=== PATIENT | female | born 1955 | race Caucasian/White ===

== ENCOUNTER 2021-02-08 11:30 | Observation (INO) ==
[2021-02-08 13:23] LABS: Basophils # 0.1 K/mcL (0.0-0.2); Basophils % 0.7 %; Eosinophils # 0.2 K/mcL (0.0-0.6); Eosinophils % 2.7 %; Hemoglobin 11.6 g/dL (11.5-15.4); Immature Granulocytes % 0.3 % (0-4); Lymphocytes # 1.6 K/mcL (0.6-4.6); Lymphocytes % 22.2 %; Mean Corpuscular HGB Conc 32.2 g/dL (31.6-35.5); Mean Corpuscular Hemoglobin 28.5 pg (28.0-33.3); Mean Corpuscular Volume 88.5 fL (83.0-100.0); Mean Platelet Volume 9.4 fL (9.4-12.4); Monocytes # 0.5 K/mcL (0.0-1.3); Monocytes % 7.5 %; Neutrophils # 4.7 K/mcL (1.6-8.9); Platelet Count 290 K/mcL (140-400); Red Blood Count 4.07 M/mcL (3.82-4.97); Red Cell Distribution Width 12.7 % (11.5-14.5); Segmented Neutrophils % 66.6 %
[2021-02-08 13:44] LABS: Bilirubin,Urine Negative (Negative); Blood,Urine Negative (Negative); Clarity,Urine Clear (Clear); Color,Urine Light-Yellow (Yellow); Glucose,Urine (UA) Normal (Normal); Ketones,Urine Negative (Negative); Leukocyte Esterase,Urine Negative (Negative); Nitrite,Urine Negative (Negative); PH,Urine 5.5 pH Units (5.0-8.0); Protein,Urine Negative (Neg-Trace); Specific Gravity,Urine 1.013 (1.010-1.025); Urobilinogen,Urine Normal (Normal)
[2021-02-08 13:48] LABS: Alanine Aminotransferase 11 Units/L (7-52); Albumin 4.1 g/dL (3.5-5.7); Albumin/Globulin Ratio 1.2 (1.1-2.2); Alkaline Phosphatase 53 Units/L (34-104); Aspartate Amino Transferase 12 Units/L (13-39); BUN/Creatinine Ratio 24 (6-26); Bilirubin,Direct 0.1 mg/dL (0.0-0.2); Bilirubin,Indirect 0.2 mg/dL (0.0-1.0); Bilirubin,Total 0.3 mg/dL (0.3-1.0); Blood Urea Nitrogen 66 mg/dL (8-23); Calcium 10.2 mg/dL (8.6-10.3); Carbon Dioxide 21 mEq/L (23-29); Chloride 107 mEq/L (98-107); Globulin 3.5 g/dL (2.4-3.5); Glucose 103 mg/dL (70-105); Osmolality,Calculated 301 (280-300); Sodium 136 mEq/L (136-145); Total Protein 7.6 g/dL (6.4-8.9); eGFR For African Americans 21 (> 60); eGFR For Non-African Americans 18 (> 60)
[2021-02-08] MEDS ORDERED: 0.9 % Sodium Chloride 500 ML IVC ONE (14:05)
[2021-02-08 15:05] LABS: Troponin I < 0.03 ng/mL (< 0.04)
[2021-02-08] MEDS ORDERED: Naloxone 0.4 MG/ML INJ IVP PRN (15:07)
[2021-02-08] MEDS ORDERED: Perflutren Lipid Microsphere 1.3 ML in 0.9 % Sodium Chloride 8.7 ML IVP PRN (16:43)
[2021-02-08 17:03] LABS: Thyroid Stimulating Hormone 2.863 mcIU/mL (0.340-5.600)
[2021-02-08] MEDS: hydrALAZINE 25 MG TABLET PO SCH (19:38)
[2021-02-09 01:06] LABS: Basophils % 0.6 %; Eosinophils # 0.2 K/mcL (0.0-0.6); Eosinophils % 3.1 %; Hematocrit 30.9 % (35.3-44.9); Hemoglobin 10.6 g/dL (11.5-15.4); Immature Granulocytes % 0.3 % (0-4); Lymphocytes # 1.7 K/mcL (0.6-4.6); Lymphocytes % 26.9 %; Mean Corpuscular HGB Conc 34.3 g/dL (31.6-35.5); Mean Corpuscular Hemoglobin 29.5 pg (28.0-33.3); Mean Corpuscular Volume 86.1 fL (83.0-100.0); Monocytes # 0.6 K/mcL (0.0-1.3); Monocytes % 9.3 %; Neutrophils # 3.9 K/mcL (1.6-8.9); Platelet Count 250 K/mcL (140-400); Red Blood Count 3.59 M/mcL (3.82-4.97); Red Cell Distribution Width 12.7 % (11.5-14.5); Segmented Neutrophils % 59.8 %; White Blood Count 6.5 K/mcL (4.3-11.1)
[2021-02-09 01:26] LABS: Calcium 9.7 mg/dL (8.6-10.3)
[2021-02-09] MEDS: *HR* Heparin 5,000 UNIT/ML VIAL SQ SCH ×2 (04:57→16:02)
[2021-02-09] MEDS: hydrALAZINE 25 MG TABLET PO SCH ×2 (07:37→16:02)
[2021-02-09] MEDS ORDERED: Dextrose Gel 15 GM/37.5 ML TUBE PO PRN ×2 (08:39)
[2021-02-09] MEDS ORDERED: *HR* Dextrose 50 % in Water (Vial) 50 ML VIAL IVP PRN (08:39)
[2021-02-09] MEDS ORDERED: D5% in Water 1,000 ML IVC PRN (08:39)
[2021-02-09] MEDS ORDERED: amLODIPine 5 MG TABLET PO SCH (09:00)
[2021-02-09] MEDS ORDERED: Valsartan 160 MG TABLET PO SCH (09:00)
[2021-02-09] MEDS ORDERED: Cholecalciferol (D-3) 1,000 UNIT (25MCG) TABLET PO SCH (09:00)
[2021-02-09] MEDS: Insulin LISPRO 300 UNITS/3 ML VIAL SUBQ SCH ×2 (11:44→16:04)
[2021-02-09 13:41] LABS: Magnesium 2.4 mg/dL (1.6-2.6)
[2021-02-09 15:19] VITALS: BP 120/66; PULSE 59; TEMP 99; O2SAT 96
== END 2021-02-09 18:06 | disposition home or self-care (01) ==
LOC: EMEROOARM 11:30 → 3BNU 11:30 → SUATTDRO 16:29 → 3BNU 17:08
PROVIDERS: ADMIT Internal Medicine; ATTEND Internal Medicine